=== PATIENT | male | born 1945 | race Caucasian/White ===

== ENCOUNTER 2017-05-26 06:01 | Inpatient (IN) | payer OTHER, MEDICARE ==
[2017-05-26] MEDS ORDERED: LIDOCAINE 1% 2 ML INJ ID PRN (06:10)
[2017-05-26] MEDS ORDERED: LR 1,000 ML IV ONE (06:10)
--- NOTE | 2017-05-26 06:34 | PDHPUP ---
History & Physical Update H&P update statement: This history and physical update is based on an assessment of the patient which was completed after admission or registration (within 24 hours), but prior to the surgery/procedure. H&P update: H&P reviewed & patient examined, no change in patient's condition since H&P completed
[2017-05-26] MEDS ORDERED: BUPIVACAINE 0.25% 30 ML SDV ONE ×2 (06:50→08:20)
[2017-05-26] MEDS ORDERED: CHLORHEXIDINE GLUC HIBICLENS 118 ML BTL TP ONE (06:50)
[2017-05-26] MEDS ORDERED: VANCOMYCIN 1 GM VIAL ONE (06:51)
[2017-05-26] MEDS ORDERED: THROMBIN (BOVINE) 5,000 UNIT VIAL TP ONE (06:51)
[2017-05-26] MEDS ORDERED: BACITRACIN 50,000 UNITS/10 ML SYR IRR ONE ×3 (06:52→09:57)
[2017-05-26] MEDS ORDERED: ceFAZolin 2 GM/SWFI 20 ML SYR IVP ONE (07:05)
[2017-05-26] MEDS ORDERED: MAGNESIUM HYDROXIDE 30 ML UDCUP PO PRN (07:13)
[2017-05-26] MEDS ORDERED: ONDANSETRON 4 MG/2 ML VIAL IVP PRN ×2 (07:13→10:44)
[2017-05-26] MEDS ORDERED: ONDANSETRON DISINTEGRATING 4 MG TAB PO PRN (07:13)
[2017-05-26] MEDS ORDERED: morphINE PCA 30 MG/30 ML PCA IV PRN (07:13)
[2017-05-26] MEDS ORDERED: diphenhydrAMINE 25 MG CAP PO PRN (07:13)
[2017-05-26] MEDS ORDERED: LACTULOSE 20 GM/30 ML UDCUP PO PRN (07:13)
[2017-05-26] MEDS ORDERED: HYDROmorphONE/DILAUDID 2 MG/ML INJ IVP PRN ×2 (07:13→11:00)
[2017-05-26] MEDS ORDERED: NALOXONE HCL 0.4 MG/ML INJ IVP PRN ×2 (07:13→10:44)
[2017-05-26] MEDS ORDERED: POLYETHYLENE GLYCOL 3350 17 GM PKT PO PRN (07:13)
[2017-05-26] MEDS ORDERED: BISACODYL 10 MG SUPP PR PRN (07:13)
[2017-05-26] MEDS ORDERED: NS W/ 20 KCl/L 1,000 ML IV SCH (07:15)
[2017-05-26] MEDS ORDERED: MIDAZOLAM 2 MG/2 ML VIAL IVP ONE (07:16)
--- NOTE | 2017-05-26 07:16 | PDANEPAE ---
ANE History of Present Illness T11/12 stenosis ANE Past Medical History - Cardiovascular History Hx Hypertension: Yes Hx Arrhythmias: No Hx Chest Pain: No Hx Coronary Artery / Peripheral Vascular Disease: Yes Hx CHF / Valvular Disease: No Hx Palpitations: No Cardiovascular History Comment: cad. RBBB. pulmonary htn. hyperlipidemia. see's Dr. Baxter next week - Pulmonary History Hx COPD: Yes Hx Asthma/Reactive Airway Disease: No Hx Recent Upper Respiratory Infection: No Hx Oxygen in Use at Home: No Hx Sleep Apnea: No Sleep Apnea Screening Result - Last Documented: Positive Pulmonary History Comment: dharmesh triggers - Neurologic History Hx Cerebrovascular Accident: No Hx Seizures: No Hx Dementia: No Neurologic History Comment: hx of previous cervical fusion. burning sensation to ble - Endocrine History Hx Diabetes: No - Renal History Hx Renal Disorders: No - Liver History Hx Hepatic Disorders: No - Neurological & Psychiatric Hx Hx Neurological and Psychiatric Disorders: No - Cancer History Hx Cancer: No - Congenital Disorder History Hx Congenital Disorders: No - GI History Hx Gastrointestinal Disorders: No - Other Health History Other Health History: wears readers - Chronic Pain History Chronic Pain: Yes (generalized, mostly back and legs) - Surgical History Prior Surgeries: left TKA 6 months ago. 07/16/11 c5-6 ant cervical fusion with vvc. rtc repair. bilateral knee scopes ANE Review of Systems Review of Systems: - Exercise capacity METS (RN): 3 METS ANE Patient History - Allergies Allergies/Adverse Reactions: No Allergies [NKA] Allergy (Mild, Verified 05/13/17 12:20) - Home Medications Home Medications: Aspirin [Aspirin 81mg (OTC)] 81 mg PO HS 07/14/11 [Last Taken 05/19/17] Atorvastatin Calcium [Lipitor 80 mg] 80 mg PO DAILY 07/14/11 [Last Taken ] Hydrochlorothiazide [Hydrochlorothiazide 12.5 MG (RX)] 12.5 mg PO DAILY [Last Taken 05/25/17] Lisinopril [Zestril 20 mg (RX)] 40 mg PO DAILY 07/14/11 [Last Taken 05/25/17] Metoprolol Succinate Xr [Toprol Xl 50 mg (RX)] 50 mg PO DAILY 07/14/11 [Last Taken 05/25/17] Multivitamins [Multivitamin (OTC)] 1 each PO DAILY 07/14/11 [Last Taken 05/25/17 ] Tiotropium Br/Olodaterol HCl [Stiolto Respimat Inhal [place]] 2 puffs IH DAILY [Last Taken 05/26/17] - NPO status NPO Since - Liquids (Date): 05/25/17 NPO Since - Liquids (Time): 20:00 NPO Since - Solids (Date): 05/25/17 NPO Since - Solids (Time): 20:00 - Smoking Hx Smoking Status: Former smoker - Family Anes Hx Family Hx Anesthesia Complications: none ANE Labs/Vital Signs - Vital Signs Blood Pressure: 113/77 Heart Rate: 100 Respiratory Rate: 14 O2 Sat (%): 94 Height: 167.64 cm Weight: 86.183 kg ANE Physical Exam - Airway Neck exam: FROM Mallampati Score: Class 1 Mouth exam: normal dental/mouth exam - Pulmonary Pulmonary: no respiratory distress - Cardiovascular Cardiovascular: regular rate and rhythym - ASA Status ASA Status: III ANE Anesthesia Plan Anesthesia Plan: general endotracheal anesthesia Lines/Monitors: arterial line
[2017-05-26] MEDS ORDERED: PROPOFOL/EMULSION 500 MG/50 ML BOTTLE IV ONE (07:23)
[2017-05-26] MEDS ORDERED: PROPOFOL 200 MG/20 ML VIAL ONE ×2 (07:23→08:19)
[2017-05-26] MEDS ORDERED: fentaNYL 100 MCG/2 ML INJ ONE ×2 (07:23→11:40)
[2017-05-26] MEDS ORDERED: REMIFENTANIL HCL 1 MG VIAL ONE (07:23)
[2017-05-26] MEDS ORDERED: LIDOCAINE 2% 5 ML SDV ONE (07:26)
[2017-05-26] MEDS ORDERED: ROCURONIUM 50 MG/5 ML VIAL ONE (07:29)
[2017-05-26] MEDS ORDERED: ceFAZolin 2 GM/SWFI 2 GM/20 ML SYR IVP ONE (07:30)
[2017-05-26] MEDS ORDERED: PHENYLEPHRINE HCL 100 MCG/ML SYR ONE ×2 (07:41→08:27)
[2017-05-26] MEDS ORDERED: DEXAMETHASONE 4 MG/ML VIAL ONE (08:36)
[2017-05-26] MEDS ORDERED: Tiotropium Br/Olodaterol Hcl [Stiolto Respimat Inhal Spray] 2 PUFF IH SCH (09:00)
[2017-05-26] MEDS ORDERED: ALBUMIN 5% 250 ML BOTTLE IV ONE (09:26)
[2017-05-26] MEDS ORDERED: PHENYLEPHRINE 10 MG/ML SDV ONE (10:39)
[2017-05-26] MEDS ORDERED: ONDANSETRON 4 MG/2 ML VIAL ONE (10:44)
[2017-05-26] MEDS ORDERED: PROMETHAZINE HCL 25 MG/ML INJ IVP PRN (10:44)
[2017-05-26] MEDS ORDERED: HYDROmorphONE/DILAUDID 1 MG/ML INJ IVP PRN (10:44)
[2017-05-26] MEDS ORDERED: HYDROmorphONE/DILAUDID 2 MG/ML INJ ONE ×2 (10:45→12:17)
--- NOTE | 2017-05-26 11:22 | POSTANESTH ---
Post Anesthetic Evaluation Cardiovascular Status: Normal, Stable Respiratory Status: Normal, Stable Level of Consciousness/Mental Status: Can Participate in Eval Pain Control: Adequate, Prn Tx Ordered Nausea/Vomiting Control: Adequate, Prn Tx Ordered Complications Possibly Related to Anesthesia: None Noted (Moving all ext and good vision.)
--- NOTE | 2017-05-26 11:30 | SOAPPROG ---
SOAP Progress Note Assessment/Plan: Post Op Visit: S: Awake and alert. Pt with expected lower back pain O: AFVSS/PERRLA/EOMI no droop CN 2-12 grossly intact +lt touch 5/5 BUE/BLE = CDI EDEL in place A/P: 72 yo male that is s/p T11/12 fusion and laminectomy -admit to floor -call with any questions or concerns -brace when out of bed -pt seen by Dr Jones as well 05/26/17 11:28 Objective: Vital Signs Temp Pulse Resp BP Pulse Ox 36.4 C 100 14 113/77 94 05/26/17 06:28 05/26/17 09:01 05/26/17 09:01 05/26/17 09:01 05/26/17 09:01 ICD10 Worksheet Patient Problems: Problems Problem Status Onset Arthrodesis status Acute Thoracic stenosis Acute - ICD10 Problem Qualifiers (1) Thoracic stenosis (2) Arthrodesis status
[2017-05-26] MEDS: fentaNYL 100 MCG/2 ML INJ IVP PRN ×2 (11:40→11:57)
--- NOTE | 2017-05-26 12:04 | GOP ---
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 PROCEDURE PERFORMED: Posterior bilateral facetectomy with laminectomy and decompression T11, T12; po sterolateral arthrodesis, T11, T12; posterior nonsegmental instrumentation across a single interspace , T11-12; spinal stereotaxis; same incision bone graft harvest; microscope. FINDINGS: ESTIMATED BLOOD LOSS: 150 cc. INDICATIONS: The patient is a 72-year-old with progressive weakness in his legs and bilateral anteri or thigh dysesthesias whose MRI demonstrated severe multilevel spondylosis throughout the thoracic an d lumbar spine with severe foraminal stenosis at virtually every level of the lumbar spine. He had, however, myelomalacia and cord compression at the T11-12 level, and there was circumferential anuel sidney with bilateral facet arthropathy posteriorly creating compressive element as well as a calcified ventral T11-12 disk. I did not think he was healthy enough to go through with a thoracic diskectomy at the T11-12 level, but I did think that we should try posterior decompression, which in this case in my view was likely to be sufficient to treat this severe stenosis, but in addition, because of the large ventral calcific problem at T11-12, I suggested a single-level fusion to stabilize this level and hopefully to remove the dynamic growth impetus to the disk herniation at T11-12. The risk of scr ew and hardware malposition and malfunction was discussed. He knew there was risk of paraplegia from the surgery as well as the risk of CSF leak. He knew that he had very severe multilevel lumbar dise ase and that this too may require surgery at some point in the future. He had seen my partner to dis cuss this, and we all felt that the T11-12 level was the most urgent given the findings from the MRI. He wanted to proceed despite the risks of surgery. DESCRIPTION OF PROCEDURE: The patient was taken to the operating room, placed in the supine position . General anesthesia was begun after starting an arterial line. Care was taken to keep the arterial pressures elevated throughout surgery. Our goal was a MAP greater than 85. Pre-flip baseline motor -evoked potentials were performed, and they looked good. We then flipped him prone on the Henri ta ble. Care was taken to pad all points of contact. We performed motor-evoked potentials once again, and they were stable. He was sterilely prepped and draped in the usual fashion. We used 3 localizin g needles and counted up from the sacrum to localize the T11-12 level. We counted based upon levels from the sacrum and confirmed these levels based upon counting on the lumbar MRI. We also identified visual osteophytes of the lumbar spine to try to confirm our location, and this too was successful. We then made a midline incision from the spinous process of L1 to T10. The subcutaneous tissue was dissected using Bovie cautery down through the fascia, and a subperiosteal dissection was made down t he lamina of T10, T11, T12, and L1. We placed a cranial plate fiducial made by mDialog into the L1 s pinous process and, using this screwed-in fiducial, we then performed an O-arm spin and counted up fr om the sacrum, and we confirmed the fiducial was in the L1 spinous process. On the basis of this per manent fixture and our operative field, we then attached the Stealth reference frame to the T12 spino us process, denuded the T11-12 facet joints on each side, marked our pedicle screw entry sites, and t nay performed an O-arm spin. Using frameless Stealth stereotaxis, we placed pedicle screws bilateral ly at T11 and T12. The screws on the left at T11 and 12 approached the medial border of the pedicle, but there was not a violation of the spinal canal or the neural foramen itself. I was happy with th e positioning of all of the screws, which was confirmed on a post-placement O-arm spin. We also veri fied on the O-arm spin the calcific nature of the T11-12 disk as well as the osteophyte configuration seen on both his preop x-rays as well as his intraoperative films. We then placed pre-bent 45 mm ro ds down between T11 and T12 and slightly distracted these. We then decorticated the posterolateral b one masses on each side. The operating microscope was introduced. We harvested the entire T11 spino us process and drilled bilateral laminectomies at T11 and T12, harvested this bone for autologous gra fting purposes. We then drilled across the rostral lamina of T10. We never entered the spinal canal . We did multiple motor-evoked potentials, and they were all stable. We thinned out the rostral gates charissa of T10 down to the dura with a high-speed drill, and then came along the medial facet joints on e ach side and thinned this down until there were no bony attachments. We then simply grabbed this pie ce of bone, and then in en bloc fashion, elevated it and the ligamentum flavum up out of the canal, a nd it was removed with a Leksell rongeur. We never passed a Kerrison underneath the ligamentum flavu m until this was done. After elevating this, we did a motor-evoked potential. It was stable. We th en took the Kerrison and worked our way circumferentially around this large lami defect, smoothing ou t the bony edges. We achieved meticulous hemostasis, put bone autograft and BMP posterolaterally marcio aterally. We used 1.0 mg of BMP. We then placed a subfascial drain and then closed the incision in multiple layers using Vicryl sutures. Steri-Strips were applied to the skin. The patient was revers ed from anesthesia, extubated, and transferred to recovery room in stable condition. COMPLICATIONS: None. INSTRUMENTATION USED: [employer]at[employer]tronic Solera 4.75 mm system with 45 mm rods, and we used 6.5 x 40 mm screw s. /[id number]/MODL
[2017-05-26] MEDS: ATORVASTATIN CALCIUM 40 MG TAB PO SCH (13:53)
[2017-05-26] MEDS: GABAPENTIN 300 MG CAP PO SCH ×2 (13:53→21:18)
[2017-05-26] MEDS: METHOCARBAMOL 750 MG TAB PO PRN ×2 (13:54→21:17)
[2017-05-26] MEDS: HYDROCHLOROTHIAZIDE 12.5 MG CAP PO SCH (13:54)
[2017-05-26] MEDS: oxyCODONE IR 5 MG TAB PO PRN ×3 (13:54→18:42)
[2017-05-26] MEDS: METOPROLOL SUCCINATE XR 50 MG TAB PO SCH (13:54)
[2017-05-26] MEDS: LISINOPRIL 20 MG TAB PO SCH (13:55)
[2017-05-26] MEDS: FAMOTIDINE 20 MG TAB PO SCH ×2 (13:55→21:17)
[2017-05-26] MEDS ORDERED: ceFAZolin 2 GM/DEXTROSE 100 ML IV SCH (14:00)
[2017-05-26] MEDS: SENNOSIDES/DOCUSATE SODIUM TAB PO SCH ×2 (15:21→21:16)
[2017-05-26] MEDS: ceFAZolin 2 GM/SWFI 2 GM/20 ML SYR IVP SCH ×2 (16:25→23:07)
[2017-05-26] MEDS: HYDROCODONE/APAP 5/325 TAB PO PRN ×2 (17:10→21:15)
--- NOTE | 2017-05-26 18:01 | PDMN ---
Medical Necessity Medical [facility] Arthrodesis, posterior or posterolateral
[2017-05-27] MEDS: METHOCARBAMOL 750 MG TAB PO PRN ×3 (04:17→19:47)
[2017-05-27] MEDS: HYDROCODONE/APAP 5/325 TAB PO PRN (04:17)
[2017-05-27 04:31] LABS: PLATELET COUNT 217 10^3/uL (150-400)
[2017-05-27] MEDS: GABAPENTIN 300 MG CAP PO SCH ×3 (05:51→21:47)
--- NOTE | 2017-05-27 06:44 | NEUSURGPN ---
Date of Surgery: 05/26/17 Post Op Day: 1 Assessment/Plan: Assessment: 72 yo male that is s/p T11/12 fusion and laminectomy POD #1 Plan: -s/p T11/12 fusion and decompression: pt states he has expected lower back pain. Legs feel good -PT/OT pending -brace when out of bed -post op xrays pending -no new events overnight -continue with tele monitoring-no events -likely remove drain today -call with any questions or concerns -pt seen by Dr Jones as well -pt understands and agrees Subjective: Awake and alert. NAD. Eating/drinking and voiding. No f/c/n/v/d. Objective: AFVSS/PERRLA/EOMI no droop CN 2-12 grossly intact +lt touch 5/5 BUE/BLE = CDI EDEL in place Neuro Check Frequency: per routine Urinary Catheter in Place: No Catheter Insertion Date: 05/26/17 - Physician Discussed Patient with : Robert Patient Seen by : Robert Neurosurgery Physical Exam - Vitals, I&O, Labs I and O 05/26/17 05/27/17 05/28/17 05:59 05:59 05:59 Intake Total 3500 Output Total 2030 Balance 1470 Weight 86.183 kg Intake: Oral (ml) 1750 IV Intake (ml) 1750 Output: Urine (ml) 1550 Catheter 1550 Estimated Blood Loss (ml) 150 EDEL Drain Output (ml) 330 #1 Right Posterior Back 330 Henri Jolley Other: Intake Quantity Yes Sufficient Vital Signs Temp Pulse Resp BP Pulse Ox 37.1 C 69 16 93/65 L 94 05/27/17 04:00 05/27/17 04:00 05/27/17 04:00 05/27/17 04:00 05/27/17 04:00 Laboratory Results 05/27/17 04:07 05/27/17 04:07 ICD10 Worksheet Patient Problems: Problems Problem Status Onset Arthrodesis status Acute Thoracic stenosis Acute - ICD10 Problem Qualifiers (1) Thoracic stenosis (2) Arthrodesis status
[2017-05-27] MEDS: FAMOTIDINE 20 MG TAB PO SCH ×2 (09:01→19:48)
[2017-05-27] MEDS: ATORVASTATIN CALCIUM 40 MG TAB PO SCH (09:01)
[2017-05-27] MEDS: SENNOSIDES/DOCUSATE SODIUM TAB PO SCH ×2 (09:02→19:48)
[2017-05-27] MEDS: oxyCODONE IR 5 MG TAB PO PRN ×3 (09:02→19:47)
[2017-05-27] MEDS: Tiotropium Br/Olodaterol Hcl [Stiolto Respimat Inhal Spray] 2 PUFF IH SCH (09:03)
[2017-05-27] MEDS: METOPROLOL SUCCINATE XR 50 MG TAB PO SCH (09:05)
[2017-05-27] MEDS: LISINOPRIL 20 MG TAB PO SCH (09:05)
[2017-05-27] MEDS: HYDROCHLOROTHIAZIDE 12.5 MG CAP PO SCH (09:05)
--- NOTE | 2017-05-27 09:26 | ASMTCMCOM ---
CM Note CM Note Notes: Chart reviewed for dc planning purposes. 72 year old male s/p laminectomy, to wear brace when out of bed. Therapies pending at this time. Discharge needs to be determined at this point. CM to follow. Date Signed: 05/27/2017 09:25 AM Electronically Signed By:Genesis Lisa RN
[2017-05-28] MEDS: oxyCODONE IR 5 MG TAB PO PRN ×3 (02:15→11:46)
[2017-05-28] MEDS: METHOCARBAMOL 750 MG TAB PO PRN ×2 (02:15→11:46)
[2017-05-28] MEDS: GABAPENTIN 300 MG CAP PO SCH (05:57)
--- NOTE | 2017-05-28 07:57 | NEUSURGPN ---
Date of Surgery: 05/26/17 Post Op Day: 2 Assessment/Plan: Assessment: 72 yo male that is s/p T11/12 fusion and laminectomy POD #2 Plan: -s/p T11/12 fusion and decompression: pt states he has expected lower back pain. Legs feel better -Patient may dc home later today pending therapies recs -Patient on room air challenge, history of needing O2 post op with previous surgeries r/t COPD -PT/OT eval today, can dc home if ok with therapies -brace when out of bed -post op xrays stable hardware placement -EDEL dc'd this am -call with any questions or concerns -pt seen by Dr Jones as well Subjective: Legs feel better, patient sitting in chair Objective: AxO x3 no droop CN 2-12 grossly intact +lt touch 5/5 BUE/BLE = Dressing CDI Neuro Check Frequency: per routine Urinary Catheter in Place: No Catheter Insertion Date: 05/26/17 - Physician Discussed Patient with : Robert Patient Seen by : Robert Neurosurgery Physical Exam - Vitals, I&O, Labs I and O 05/27/17 05/28/17 05/29/17 05:59 05:59 05:59 Intake Total 3500 2550 Output Total 2030 1255 50 Balance 1470 1295 -50 Weight 86.183 kg Intake: Oral (ml) 1750 2550 IV Intake (ml) 1750 Output: Urine (ml) 1550 1125 Catheter 1550 Urinal 1125 Estimated Blood Loss (ml) 150 EDEL Drain Output (ml) 330 130 50 #1 Right Posterior Back 330 130 50 Henri Jolley Other: Intake Quantity Yes Yes Sufficient Number of Voids Urinal 1 Vital Signs Temp Pulse Resp BP Pulse Ox 36.5 C 90 14 126/87 H 95 05/28/17 04:00 05/28/17 04:00 05/28/17 04:00 05/28/17 04:00 05/28/17 04:00 Laboratory Results 05/27/17 04:07 05/27/17 04:07 ICD10 Worksheet Patient Problems: Problems Problem Status Onset Arthrodesis status Acute Thoracic stenosis Acute
[2017-05-28] MEDS: ATORVASTATIN CALCIUM 40 MG TAB PO SCH (09:12)
[2017-05-28] MEDS: LISINOPRIL 20 MG TAB PO SCH (09:12)
[2017-05-28] MEDS: HYDROCHLOROTHIAZIDE 12.5 MG CAP PO SCH (09:12)
[2017-05-28] MEDS: METOPROLOL SUCCINATE XR 50 MG TAB PO SCH (09:12)
[2017-05-28] MEDS: FAMOTIDINE 20 MG TAB PO SCH (09:13)
[2017-05-28] MEDS: Tiotropium Br/Olodaterol Hcl [Stiolto Respimat Inhal Spray] 2 PUFF IH SCH (09:16)
[2017-05-28] MEDS: SENNOSIDES/DOCUSATE SODIUM TAB PO SCH (09:16)
[2017-05-28 11:32] VITALS: BP 139/84; PULSE 94; RESP 15; TEMP 98; O2SAT 90
--- NOTE | 2017-05-28 12:35 | PDIAF ---
- Diagnosis Diagnosis: s/p T11-12 laminectomy and fusion Code Status: Full Code - Medication Management Discharge Medications: Medications to Continue on Transfer Atorvastatin Calcium [Lipitor 80 mg] 80 mg PO DAILY 07/14/11 [Last Taken ] Hydrochlorothiazide [HCTZ (*)] 12.5 mg PO DAILY 07/14/11 [Last Taken 05/25/17] Lisinopril [Zestril 20 mg (*)] 40 mg PO DAILY 07/14/11 [Last Taken 05/25/17] Metoprolol Succinate Xr [Toprol Xl 50 mg (*)] 50 mg PO DAILY 07/14/11 [Last Taken 05/25/17] Multivitamins [Multivitamin (*)] 1 each PO DAILY 07/14/11 [Last Taken 05/25/17] Tiotropium Br/Olodaterol HCl [Stiolto Respimat Inhal [place]] 2 puffs IH DAILY [Last Taken 05/26/17] Aspirin [Aspirin 81mg (*)] 81 mg PO HS #30 tab.chew 05/28/17 [Last Taken Unknown ] Methocarbamol [Robaxin 750 mg (*)] 750 mg PO QID PRN #60 tab 05/28/17 [Last Taken Unknown] Sennosides/Docusate Sodium [Senokot-S] 1 - 2 tab PO BID tab 05/28/17 [Last Taken Unknown] oxyCODONE IR [Oxycodone Ir (*)] 5 - 10 mg PO Q4HRS PRN #60 tab 05/28/17 [Last Taken Unknown] Discharge Medications: Refer to the Discharge Home Medication list for PRN reason. PICC Care - Routine: N/A - Orders Services needed: Home Care, Physical Therapy, Occupational Therapy Home Care Face to Face: I certify that this patient was under my care and that I had the required [id number] encounter meeting the encounter requirements on the discharge day. My findings support the fact that the patient is homebound as defined in Home Care Face to Face Continued: CMS Chapter 7 Medicare Benefits Manual 30.1.1 , The condition of the patient is such that there exists a normal inability to leave home and consequently, leaving home would require a considerable and taxing effort. Diet Recommendation: no restrictions on diet Diet Texture: Regular Texture Diet Wound Care Instructions: Remove dressing Wednesday05/29/17. leave steri strips in place for 2 weeks Activity/Weight Bearing Restrictions: no lifting or twisting. do not lift greater than 10 pounds Equipment: wear brace when out of bed - Follow Up Care Current Providers and Referrals: Magi Jones MD [Medical Doctor] - follow up in 2 weeks Avinash Vargas MD [Primary Care Provider] -
--- NOTE | 2017-05-28 15:00 | ASMTCMCOM ---
CM Note CM Note Notes: Pt medically stable for d/c. PT/OT rec home. No CM d/c needs identified. Date Signed: 05/28/2017 02:59 PM Electronically Signed By:LIS Hudson
[2017-05-29] MEDS ORDERED: ENOXAPARIN 40 MG/0.4 ML SYR SC SCH (09:00)
== END 2017-05-28 14:53 | disposition home health service (06) | DRG 460 ==
LOC: F3N 06:01
PROVIDERS: ADMIT Neurological Surgery; ATTEND Neurological Surgery
PROC: 0RG6071 Fusion of Thoracic Vertebral Joint with Autologous Tissue Substitute, Posterior Approach, Posterior Column, Open Approach (ICD-10-PCS; principal; 2017-05-26 07:30)
PROC: 4A1004G Monitoring of Central Nervous Electrical Activity, Intraoperative, Open Approach (ICD-10-PCS; principal; 2017-05-26 07:30)
DX: M48.04 Spinal stenosis, thoracic region (principal); G95.89 Other specified diseases of spinal cord; M51.24 Other intervertebral disc displacement, thoracic region; M51.36 Other intervertebral disc degeneration, lumbar region; M54.16 Radiculopathy, lumbar region; M48.07 Spinal stenosis, lumbosacral region; I25.10 Atherosclerotic heart disease of native coronary artery without angina pectoris; E78.5 Hyperlipidemia, unspecified; I27.20 Pulmonary hypertension, unspecified; I10 Essential (primary) hypertension; J44.9 Chronic obstructive pulmonary disease, unspecified; G47.33 Obstructive sleep apnea (adult) (pediatric); Z87.891 Personal history of nicotine dependence
CPT/HCPCS: 97116-GP; 97161-GP; 97166-GO; 97535-GO; C1713; G8978-GP-CJ; G8979-GP-CI; G8980-GP-CI; G8987-GO-CJ; G8988-GO-CI; J0171; J0690; J1100; J1170; J2250; J2370; J2405; J2704; J3010; J3370; P9041